=== PATIENT | female | born 1940 | race Caucasian/White ===

== ENCOUNTER 2021-10-05 16:50 | Emergency (ER) | payer MEDICARE ==
[2021-10-05 19:24] LABS: #Basophils 0.1 10x3/uL (0.0-0.2); #Eosinphils 0.2 10x3/uL (0.0-0.5); #Monocytes 0.7 10x3/uL (0.0-1.1); #Neutrophils 3.5 10x3/uL (1.5-8.4); %Basophils 0.7 % (0.0-2.0); %Eosinophils 2.5 % (0.0-6.0); %Monocytes 9.2 % (0.0-10.0); %Neutrophils 49.2 % (40.0-75.0); Hemoglobin 11.8 g/dL (12.0-15.5); Mean Corpuscular HGB CONC 33.5 g/dL (32.0-36.0); Mean Corpuscular Hemoglobin 31.6 pg (27.0-33.0); Mean Corpuscular Volume 94.1 fl (81.6-98.3); Mean Platelet Volume 10.9 fl (7.4-10.4); Platelet Count 264 10x3/uL (150-450); RBC Distribution Width 12.4 % (11.5-14.5); Red Blood Cell (RBC) Count 3.74 10x6/uL (3.90-5.03); White Blood Cell (WBC) Count 7.1 10x3/uL (3.5-10.5)
[2021-10-05 20:06] LABS: ALT (SGPT) 11 U/L (8-55); AST (SGOT) 17 U/L (5-34); Albumin 3.9 g/dL (3.4-4.8); Alkaline Phosphatase 106 U/L (40-110); Anion Gap 12 mmol/L (10-20); BUN (Urea Nitrogen) 26 mg/dL (9.8-20.1); Bilirubin, Total 0.7 mg/dL (0.2-1.2); CK (CPK) 66 U/L (29-168); Calc. Creatinine Clearance 0 mL/min (70-130); Calcium 9.4 mg/dL (7.8-10.44); Carbon Dioxide 28 mmol/L (23-31); Chloride 102 mmol/L (98-107); Estimated GFR 63; Globulin 2.3 g/dL (2.4-3.5); Glucose 151 mg/dL (83-110); Potassium 4.4 mmol/L (3.5-5.1); Protein, Total 6.2 g/dL (5.8-8.1); Sodium 138 mmol/L (136-145)
== END 2021-10-05 20:45 | disposition home or self-care (01) ==
LOC: CSHERS 16:50
DX: R00.1 Bradycardia, unspecified (principal); R51.9 Headache, unspecified; R11.0 Nausea; I48.91 Unspecified atrial fibrillation; I10 Essential (primary) hypertension; M81.0 Age-related osteoporosis without current pathological fracture
CPT/HCPCS: 80053; 82550; 84484; 85025; 93005

== ENCOUNTER 2021-10-06 11:16 | Emergency (ER) | payer MEDICARE | END 2021-10-06 11:50 | disposition home or self-care (01) | LOC: CSHERS 11:16 | DX: R00.1 Bradycardia, unspecified (principal); I48.91 Unspecified atrial fibrillation; I10 Essential (primary) hypertension | CPT/HCPCS: 93005 ==

== ENCOUNTER 2022-03-05 18:43 | Inpatient (IN) | payer MEDICARE ==
[2022-03-05 20:06] LABS: #Monocytes 0.8 10x3/uL (0.0-1.1); #Neutrophils 7.3 10x3/uL (1.5-8.4); %Basophils 0.2 % (0.0-2.0); %Eosinophils 0.1 % (0.0-6.0); %Lymphocytes 13.5 % (18.0-47.0); %Monocytes 8.7 % (0.0-10.0); %Neutrophils 77.2 % (40.0-75.0); Hemoglobin 11.8 g/dL (12.0-15.5); Mean Corpuscular HGB CONC 34.6 g/dL (32.0-36.0); Mean Corpuscular Volume 92.4 fl (81.6-98.3); Mean Platelet Volume 10.5 fl (7.4-10.4); Platelet Count 175 10x3/uL (150-450); RBC Distribution Width 12.4 % (11.5-14.5); Red Blood Cell (RBC) Count 3.69 10x6/uL (3.90-5.03); White Blood Cell (WBC) Count 9.4 10x3/uL (3.5-10.5)
[2022-03-05 20:22] LABS: ALT (SGPT) 19 U/L (8-55); AST (SGOT) 28 U/L (5-34); Albumin 3.7 g/dL (3.4-4.8); Alkaline Phosphatase 68 U/L (40-110); Anion Gap 13 mmol/L (10-20); BUN (Urea Nitrogen) 11 mg/dL (9.8-20.1); Bilirubin, Total 0.6 mg/dL (0.2-1.2); Calc. Creatinine Clearance 0 mL/min (70-130); Calcium 8.2 mg/dL (7.8-10.44); Carbon Dioxide 23 mmol/L (23-31); Chloride 99 mmol/L (98-107); Estimated GFR 57; Globulin 2.1 g/dL (2.4-3.5); Glucose 134 mg/dL (83-110); Potassium 4.5 mmol/L (3.5-5.1); Protein, Total 5.8 g/dL (5.8-8.1); Sodium 130 mmol/L (136-145)
[2022-03-06] MEDS ORDERED: Aspirin 81 mg Enteric Coated Tablet PO SCH (02:30)
[2022-03-06 02:36] LABS: Troponin I 0.038 ng/mL (< 0.028)
[2022-03-06] MEDS ORDERED: Aspirin Chewable 81 MG TAB ONE ×2 (02:46→08:17)
[2022-03-06] MEDS ORDERED: NS 0.9% w/ 20 MEQ KCL 1,000 ML ONE ×2 (02:47)
[2022-03-06] MEDS: NS 0.9% w/ 20 MEQ KCL 1,000 ML/1,000 ML BAG IV SCH ×2 (02:55→14:42)
[2022-03-06 03:55] LABS: Anion Gap 14 mmol/L (10-20); BUN (Urea Nitrogen) 8 mg/dL (9.8-20.1); Calc. Creatinine Clearance 0 mL/min (70-130); Calcium 8.1 mg/dL (7.8-10.44); Carbon Dioxide 21 mmol/L (23-31); Chloride 105 mmol/L (98-107); Estimated GFR 72; Glucose 104 mg/dL (83-110); Magnesium 1.8 mg/dL (1.6-2.6); Potassium 4.2 mmol/L (3.5-5.1); Sodium 136 mmol/L (136-145)
[2022-03-06 03:58] LABS: Hemoglobin 11.4 g/dL (12.0-15.5); Mean Corpuscular HGB CONC 34.4 g/dL (32.0-36.0); Mean Corpuscular Hemoglobin 31.8 pg (27.0-33.0); Mean Corpuscular Volume 92.2 fl (81.6-98.3); Mean Platelet Volume 10.3 fl (7.4-10.4); Platelet Count 161 10x3/uL (150-450); RBC Distribution Width 12.4 % (11.5-14.5); Red Blood Cell (RBC) Count 3.59 10x6/uL (3.90-5.03); White Blood Cell (WBC) Count 8.3 10x3/uL (3.5-10.5)
[2022-03-06 04:01] LABS: MDiff Complete? YES
[2022-03-06 04:06] LABS: Lymphocytes 22 % (21-51); Monocytes 5 % (0-10); Neutrophil 73 % (42-75)
[2022-03-06 04:09] LABS: Hypochromia SLIGHT = 6-15 cells (100X) (0-5/hpf); Microcytosis SLIGHT = 6-15 cells (100X) (0-5/hpf); Platelet Morphology Comment Appears Adequate
[2022-03-06] MEDS ORDERED: PAXLOVID REQUEST IVPB PRN (06:12)
[2022-03-06 07:35] VITALS: BMI 23.1
[2022-03-06] MEDS ORDERED: FLU VACC QS2022-23(65YR UP)/PF 240 MCG/0.7 ML SYRINGE IM ONE (08:15)
[2022-03-06] MEDS ORDERED: Apixaban 5 MG TAB ONE (08:17)
[2022-03-06] MEDS ORDERED: Zinc Sulfate 220 MG CAP ONE (08:19)
[2022-03-06] MEDS ORDERED: Cholecalciferol 1,000 UNITS (25 MCG) TAB ONE (08:19)
[2022-03-06] MEDS ORDERED: Ascorbic Acid 500 mg Chewable Tablet ONE (08:19)
[2022-03-06] MEDS: Ascorbic Acid 500 mg Chewable Tablet PO SCH (08:24)
[2022-03-06] MEDS: Polyethylene Glycol 3350 17 GM Packet PO SCH (08:24)
[2022-03-06] MEDS: Aspirin 81 mg Enteric Coated Tablet PO SCH (08:24)
[2022-03-06] MEDS: Valsartan 80 MG TAB PO SCH (08:24)
[2022-03-06] MEDS: Zinc Sulfate 220 MG CAP PO SCH (08:24)
[2022-03-06] MEDS: Docusate 100 MG CAP PO SCH ×2 (08:24→20:13)
[2022-03-06] MEDS: Apixaban 2.5 MG TAB PO SCH ×2 (08:24→20:13)
[2022-03-06] MEDS: Cholecalciferol 1,000 UNITS (25 MCG) TAB PO SCH (08:24)
[2022-03-06] MEDS ORDERED: Enoxaparin Sodium 40 MG/0.4 ML SYRINGE SC SCH (09:00)
[2022-03-07] MEDS: NS 0.9% w/ 20 MEQ KCL 1,000 ML/1,000 ML BAG IV SCH ×2 (03:27→17:54)
[2022-03-07] MEDS: Apixaban 2.5 MG TAB PO SCH ×2 (09:52→20:53)
[2022-03-07] MEDS: Ascorbic Acid 500 mg Chewable Tablet PO SCH (09:52)
[2022-03-07] MEDS: Zinc Sulfate 220 MG CAP PO SCH (09:52)
[2022-03-07] MEDS: Docusate 100 MG CAP PO SCH ×2 (09:52→20:53)
[2022-03-07] MEDS: Polyethylene Glycol 3350 17 GM Packet PO SCH (09:52)
[2022-03-07] MEDS: Cholecalciferol 1,000 UNITS (25 MCG) TAB PO SCH (09:52)
[2022-03-07] MEDS: Valsartan 80 MG TAB PO SCH (09:53)
[2022-03-07] MEDS: Aspirin 81 mg Enteric Coated Tablet PO SCH (09:53)
[2022-03-07] MEDS: Acetaminophen 325 MG TAB PO PRN (13:18)
[2022-03-08 05:08] LABS: #Monocytes 0.6 10x3/uL (0.0-1.1); #Neutrophils 4.5 10x3/uL (1.5-8.4); %Basophils 0.3 % (0.0-2.0); %Eosinophils 0.3 % (0.0-6.0); %Lymphocytes 13.1 % (18.0-47.0); %Monocytes 10.3 % (0.0-10.0); %Neutrophils 75.7 % (40.0-75.0); Hemoglobin 11.8 g/dL (12.0-15.5); Mean Corpuscular HGB CONC 34.4 g/dL (32.0-36.0); Mean Corpuscular Hemoglobin 31.6 pg (27.0-33.0); Mean Platelet Volume 10.4 fl (7.4-10.4); Platelet Count 172 10x3/uL (150-450); RBC Distribution Width 12.2 % (11.5-14.5); Red Blood Cell (RBC) Count 3.73 10x6/uL (3.90-5.03)
[2022-03-08 05:17] LABS: Anion Gap 13 mmol/L (10-20); BUN (Urea Nitrogen) 7 mg/dL (9.8-20.1); Calc. Creatinine Clearance 52 mL/min (70-130); Calcium 8.3 mg/dL (7.8-10.44); Carbon Dioxide 22 mmol/L (23-31); Chloride 103 mmol/L (98-107); Estimated GFR 79; Glucose 103 mg/dL (83-110); Potassium 3.8 mmol/L (3.5-5.1); Sodium 134 mmol/L (136-145)
[2022-03-08] MEDS ORDERED: NS 0.9% w/ 20 MEQ KCL 1,000 ML ONE (05:57)
[2022-03-08] MEDS: NS 0.9% w/ 20 MEQ KCL 1,000 ML/1,000 ML BAG IV SCH ×2 (06:13→21:41)
[2022-03-08] MEDS: Docusate 100 MG CAP PO SCH (09:08)
[2022-03-08] MEDS: Polyethylene Glycol 3350 17 GM Packet PO SCH (09:08)
[2022-03-08] MEDS: Valsartan 80 MG TAB PO SCH (09:08)
[2022-03-08] MEDS: Cholecalciferol 1,000 UNITS (25 MCG) TAB PO SCH (09:08)
[2022-03-08] MEDS: Aspirin 81 mg Enteric Coated Tablet PO SCH (09:09)
[2022-03-08] MEDS: Apixaban 2.5 MG TAB PO SCH (09:09)
[2022-03-08] MEDS: Ascorbic Acid 500 mg Chewable Tablet PO SCH (09:09)
[2022-03-08] MEDS: Zinc Sulfate 220 MG CAP PO SCH (11:21)
[2022-03-08] MEDS: guaiFENesin/Codeine Phosphate 100 mg/10 mg 5 ml UD Cup PO PRN (11:21)
[2022-03-08] MEDS: Senokot S 8.6-50 MG TAB PO PRN (21:40)
[2022-03-09 04:50] LABS: #Neutrophils 5.6 10x3/uL (1.5-8.4); %Basophils 0.1 % (0.0-2.0); %Eosinophils 0.1 % (0.0-6.0); %Lymphocytes 15.1 % (18.0-47.0); %Monocytes 12.3 % (0.0-10.0); %Neutrophils 71.8 % (40.0-75.0); Hemoglobin 11.5 g/dL (12.0-15.5); Mean Corpuscular HGB CONC 34.2 g/dL (32.0-36.0); Mean Corpuscular Hemoglobin 31.3 pg (27.0-33.0); Mean Corpuscular Volume 91.6 fl (81.6-98.3); Mean Platelet Volume 10.2 fl (7.4-10.4); Platelet Count 204 10x3/uL (150-450); RBC Distribution Width 12.1 % (11.5-14.5); Red Blood Cell (RBC) Count 3.67 10x6/uL (3.90-5.03); White Blood Cell (WBC) Count 7.8 10x3/uL (3.5-10.5)
[2022-03-09] MEDS: Apixaban 2.5 MG TAB PO SCH ×2 (04:50→10:06)
[2022-03-09 04:53] LABS: Anion Gap 15 mmol/L (10-20); BUN (Urea Nitrogen) 7 mg/dL (9.8-20.1); Calc. Creatinine Clearance 52 mL/min (70-130); Calcium 8.3 mg/dL (7.8-10.44); Carbon Dioxide 21 mmol/L (23-31); Chloride 102 mmol/L (98-107); Estimated GFR 77; Glucose 104 mg/dL (83-110); Potassium 3.9 mmol/L (3.5-5.1); Sodium 134 mmol/L (136-145)
[2022-03-09] MEDS: Docusate 100 MG CAP PO SCH ×3 (06:53→22:50)
[2022-03-09] MEDS ORDERED: Ventolin HFA Inhaler 60 PUFF INHALER INH PRN (09:47)
[2022-03-09] MEDS ORDERED: Dexamethasone 4 MG TAB PO SCH (10:00)
[2022-03-09] MEDS: Benzonatate 100 MG CAP PO SCH ×2 (10:04→16:17)
[2022-03-09] MEDS: Polyethylene Glycol 3350 17 GM Packet PO SCH (10:05)
[2022-03-09] MEDS: Aspirin 81 mg Enteric Coated Tablet PO SCH (10:05)
[2022-03-09] MEDS: Ascorbic Acid 500 mg Chewable Tablet PO SCH (10:06)
[2022-03-09] MEDS: Cholecalciferol 1,000 UNITS (25 MCG) TAB PO SCH (10:06)
[2022-03-09] MEDS: Zinc Sulfate 220 MG CAP PO SCH (10:07)
[2022-03-09] MEDS: guaiFENesin/Codeine Phosphate 100 mg/10 mg 5 ml UD Cup PO PRN (10:07)
[2022-03-09] MEDS ORDERED: Fluticasone Propionate Nasal Spray 16 gm Bottle NASAL SCH (10:15)
[2022-03-09] MEDS: Valsartan 80 MG TAB PO SCH (10:19)
[2022-03-10] MEDS: Apixaban 2.5 MG TAB PO SCH ×3 (01:05→20:50)
[2022-03-10 05:02] LABS: Hemoglobin 11.3 g/dL (12.0-15.5); Mean Corpuscular HGB CONC 35.5 g/dL (32.0-36.0); Mean Corpuscular Hemoglobin 31.7 pg (27.0-33.0); Mean Corpuscular Volume 89.3 fl (81.6-98.3); Mean Platelet Volume 10.3 fl (7.4-10.4); Platelet Count 269 10x3/uL (150-450); RBC Distribution Width 11.9 % (11.5-14.5); Red Blood Cell (RBC) Count 3.56 10x6/uL (3.90-5.03); White Blood Cell (WBC) Count 9.1 10x3/uL (3.5-10.5)
[2022-03-10] MEDS: Benzonatate 100 MG CAP PO SCH ×5 (05:04→20:50)
[2022-03-10] MEDS: Acetaminophen 325 MG TAB PO PRN (05:06)
[2022-03-10 05:10] LABS: Anion Gap 13 mmol/L (10-20); BUN (Urea Nitrogen) 8 mg/dL (9.8-20.1); Calc. Creatinine Clearance 57 mL/min (70-130); Calcium 8.7 mg/dL (7.8-10.44); Carbon Dioxide 19 mmol/L (23-31); Chloride 106 mmol/L (98-107); Estimated GFR 87; Glucose 129 mg/dL (83-110); Potassium 4.2 mmol/L (3.5-5.1); Sodium 134 mmol/L (136-145)
[2022-03-10 05:39] LABS: MDiff Complete? YES
[2022-03-10 05:41] LABS: Band 8 % (5-11); Lymphocytes 10 % (21-51); Monocytes 10 % (0-10); Neutrophil 72 % (42-75)
[2022-03-10 05:42] LABS: Platelet Morphology Comment Appears Adequate
[2022-03-10 05:43] LABS: RBC Morphology Normal
[2022-03-10] MEDS: Aspirin 81 mg Enteric Coated Tablet PO SCH (08:24)
[2022-03-10] MEDS: Dexamethasone 4 MG TAB PO SCH (08:24)
[2022-03-10] MEDS: Valsartan 80 MG TAB PO SCH (08:25)
[2022-03-10] MEDS: Ascorbic Acid 500 mg Chewable Tablet PO SCH (08:26)
[2022-03-10] MEDS: Zinc Sulfate 220 MG CAP PO SCH (08:26)
[2022-03-10] MEDS: Cholecalciferol 1,000 UNITS (25 MCG) TAB PO SCH (08:26)
[2022-03-10] MEDS: Fluticasone Propionate Nasal Spray 16 gm Bottle NASAL SCH (08:27)
[2022-03-10] MEDS: Docusate 100 MG CAP PO SCH ×2 (08:28→20:50)
[2022-03-10] MEDS: guaiFENesin/Codeine Phosphate 100 mg/10 mg 5 ml UD Cup PO PRN ×2 (08:29→20:50)
[2022-03-10] MEDS: Polyethylene Glycol 3350 17 GM Packet PO SCH (08:30)
[2022-03-10] MEDS ORDERED: Lidocaine 5% Patch TD SCH (16:30)
[2022-03-11] MEDS ORDERED: Transdermal Patch Removal TOP SCH (04:30)
[2022-03-11 04:42] LABS: #Monocytes 1.5 10x3/uL (0.0-1.1); #Neutrophils 9.1 10x3/uL (1.5-8.4); %Basophils 0.1 % (0.0-2.0); %Lymphocytes 13.6 % (18.0-47.0); %Monocytes 11.9 % (0.0-10.0); %Neutrophils 73.6 % (40.0-75.0); Hemoglobin 11.4 g/dL (12.0-15.5); Mean Corpuscular HGB CONC 35.3 g/dL (32.0-36.0); Mean Corpuscular Hemoglobin 31.2 pg (27.0-33.0); Mean Corpuscular Volume 88.5 fl (81.6-98.3); Mean Platelet Volume 9.6 fl (7.4-10.4); Platelet Count 310 10x3/uL (150-450); Red Blood Cell (RBC) Count 3.65 10x6/uL (3.90-5.03); White Blood Cell (WBC) Count 12.3 10x3/uL (3.5-10.5)
[2022-03-11 04:55] LABS: Anion Gap 12 mmol/L (10-20); BUN (Urea Nitrogen) 11 mg/dL (9.8-20.1); Calc. Creatinine Clearance 55 mL/min (70-130); Calcium 8.6 mg/dL (7.8-10.44); Carbon Dioxide 22 mmol/L (23-31); Chloride 102 mmol/L (98-107); Estimated GFR 84; Glucose 99 mg/dL (83-110); Sodium 132 mmol/L (136-145)
[2022-03-11] MEDS: Benzonatate 100 MG CAP PO SCH ×4 (05:08→22:48)
[2022-03-11] MEDS: Zinc Sulfate 220 MG CAP PO SCH (08:21)
[2022-03-11] MEDS: Polyethylene Glycol 3350 17 GM Packet PO SCH (08:21)
[2022-03-11] MEDS: Dexamethasone 4 MG TAB PO SCH (08:21)
[2022-03-11] MEDS: guaiFENesin/Codeine Phosphate 100 mg/10 mg 5 ml UD Cup PO PRN ×2 (08:21→22:48)
[2022-03-11] MEDS: Apixaban 2.5 MG TAB PO SCH ×2 (08:21→22:48)
[2022-03-11] MEDS: Docusate 100 MG CAP PO SCH ×2 (08:21→22:48)
[2022-03-11] MEDS: Cholecalciferol 1,000 UNITS (25 MCG) TAB PO SCH (08:22)
[2022-03-11] MEDS: Ascorbic Acid 500 mg Chewable Tablet PO SCH (08:22)
[2022-03-11] MEDS: Fluticasone Propionate Nasal Spray 16 gm Bottle NASAL SCH (08:22)
[2022-03-11] MEDS: Aspirin 81 mg Enteric Coated Tablet PO SCH (08:22)
[2022-03-11] MEDS: Valsartan 80 MG TAB PO SCH (08:23)
[2022-03-11] MEDS: Lidocaine 5% Patch TD SCH (12:00)
[2022-03-12] MEDS: Transdermal Patch Removal TOP SCH ×2 (04:00→23:45)
[2022-03-12 05:19] LABS: #Monocytes 1.3 10x3/uL (0.0-1.1); #Neutrophils 7.4 10x3/uL (1.5-8.4); %Basophils 0.2 % (0.0-2.0); %Lymphocytes 16.3 % (18.0-47.0); %Neutrophils 70.3 % (40.0-75.0); Mean Corpuscular HGB CONC 35.4 g/dL (32.0-36.0); Mean Corpuscular Hemoglobin 31.6 pg (27.0-33.0); Mean Corpuscular Volume 89.4 fl (81.6-98.3); Mean Platelet Volume 9.8 fl (7.4-10.4); Platelet Count 344 10x3/uL (150-450); RBC Distribution Width 11.9 % (11.5-14.5); Red Blood Cell (RBC) Count 3.67 10x6/uL (3.90-5.03); White Blood Cell (WBC) Count 10.5 10x3/uL (3.5-10.5)
[2022-03-12 05:33] LABS: Anion Gap 12 mmol/L (10-20); BUN (Urea Nitrogen) 11 mg/dL (9.8-20.1); Calc. Creatinine Clearance 52 mL/min (70-130); Calcium 8.6 mg/dL (7.8-10.44); Carbon Dioxide 23 mmol/L (23-31); Chloride 102 mmol/L (98-107); Estimated GFR 79; Glucose 80 mg/dL (83-110); Potassium 3.8 mmol/L (3.5-5.1); Sodium 133 mmol/L (136-145)
[2022-03-12 05:55] LABS: %Eosinophils 0.1 % (0.0-6.0); Hemoglobin 11.6 g/dL (12.0-15.5)
[2022-03-12] MEDS: Benzonatate 100 MG CAP PO SCH ×4 (07:35→22:14)
[2022-03-12] MEDS: Docusate 100 MG CAP PO SCH ×2 (09:45→22:14)
[2022-03-12] MEDS: Fluticasone Propionate Nasal Spray 16 gm Bottle NASAL SCH (09:45)
[2022-03-12] MEDS: Ascorbic Acid 500 mg Chewable Tablet PO SCH (09:45)
[2022-03-12] MEDS: Apixaban 2.5 MG TAB PO SCH (09:45)
[2022-03-12] MEDS: Valsartan 80 MG TAB PO SCH (09:45)
[2022-03-12] MEDS: Cholecalciferol 1,000 UNITS (25 MCG) TAB PO SCH (09:45)
[2022-03-12] MEDS: Polyethylene Glycol 3350 17 GM Packet PO SCH (09:45)
[2022-03-12] MEDS: Aspirin 81 mg Enteric Coated Tablet PO SCH (09:45)
[2022-03-12] MEDS: guaiFENesin/Codeine Phosphate 100 mg/10 mg 5 ml UD Cup PO PRN (09:45)
[2022-03-12] MEDS: Dexamethasone 4 MG TAB PO SCH (09:45)
[2022-03-12] MEDS: Zinc Sulfate 220 MG CAP PO SCH (09:45)
[2022-03-12] MEDS: Lidocaine 5% Patch TD SCH (11:16)
[2022-03-12] MEDS ORDERED: Ondansetron PF 4 MG/2 ML Vial IVP PRN (11:26)
[2022-03-12] MEDS: Ventolin HFA Inhaler 60 PUFF INHALER INH SCH ×3 (14:51→19:03)
[2022-03-13] MEDS: Ventolin HFA Inhaler 60 PUFF INHALER INH SCH ×4 (02:12→19:31)
[2022-03-13 05:09] LABS: #Monocytes 1.1 10x3/uL (0.0-1.1); #Neutrophils 7.8 10x3/uL (1.5-8.4); %Basophils 0.3 % (0.0-2.0); %Eosinophils 0.1 % (0.0-6.0); %Lymphocytes 14.7 % (18.0-47.0); %Monocytes 10.3 % (0.0-10.0); Hemoglobin 10.9 g/dL (12.0-15.5); Mean Corpuscular Hemoglobin 31.7 pg (27.0-33.0); Mean Corpuscular Volume 90.4 fl (81.6-98.3); Mean Platelet Volume 9.6 fl (7.4-10.4); Platelet Count 357 10x3/uL (150-450); Red Blood Cell (RBC) Count 3.44 10x6/uL (3.90-5.03); White Blood Cell (WBC) Count 10.7 10x3/uL (3.5-10.5)
[2022-03-13] MEDS: Benzonatate 100 MG CAP PO SCH ×4 (05:22→23:35)
[2022-03-13] MEDS: Fluticasone Propionate Nasal Spray 16 gm Bottle NASAL SCH (09:00)
[2022-03-13] MEDS: Valsartan 80 MG TAB PO SCH (12:36)
[2022-03-13] MEDS: Docusate 100 MG CAP PO SCH ×2 (12:36→23:35)
[2022-03-13] MEDS: Zinc Sulfate 220 MG CAP PO SCH (12:36)
[2022-03-13] MEDS: Apixaban 2.5 MG TAB PO SCH (12:37)
[2022-03-13] MEDS: Cholecalciferol 1,000 UNITS (25 MCG) TAB PO SCH (12:37)
[2022-03-13] MEDS: Ascorbic Acid 500 mg Chewable Tablet PO SCH (12:37)
[2022-03-13] MEDS: Dexamethasone 4 MG TAB PO SCH (12:37)
[2022-03-13] MEDS: Polyethylene Glycol 3350 17 GM Packet PO SCH (12:38)
[2022-03-13] MEDS: Acetaminophen 325 MG TAB PO PRN (12:52)
[2022-03-13] MEDS: Lidocaine 5% Patch TD SCH (12:53)
[2022-03-13] MEDS: Aspirin 81 mg Enteric Coated Tablet PO SCH (12:53)
[2022-03-13 15:42] LABS: Anion Gap 13 mmol/L (10-20); BUN (Urea Nitrogen) 14 mg/dL (9.8-20.1); Calc. Creatinine Clearance 50 mL/min (70-130); Calcium 7.9 mg/dL (7.8-10.44); Carbon Dioxide 21 mmol/L (23-31); Chloride 99 mmol/L (98-107); Estimated GFR 74; Glucose 132 mg/dL (83-110); Potassium 4.2 mmol/L (3.5-5.1); Sodium 129 mmol/L (136-145)
[2022-03-13] MEDS: Transdermal Patch Removal TOP SCH (23:30)
[2022-03-14 05:21] LABS: Anion Gap 11 mmol/L (10-20); BUN (Urea Nitrogen) 12 mg/dL (9.8-20.1); Calc. Creatinine Clearance 55 mL/min (70-130); Calcium 8.3 mg/dL (7.8-10.44); Carbon Dioxide 24 mmol/L (23-31); Chloride 101 mmol/L (98-107); Estimated GFR 84; Glucose 101 mg/dL (83-110); Potassium 4.1 mmol/L (3.5-5.1); Sodium 132 mmol/L (136-145)
[2022-03-14 05:27] LABS: #Monocytes 0.7 10x3/uL (0.0-1.1); #Neutrophils 7.9 10x3/uL (1.5-8.4); %Basophils 0.2 % (0.0-2.0); %Eosinophils 0.1 % (0.0-6.0); %Lymphocytes 13.3 % (18.0-47.0); %Neutrophils 77.9 % (40.0-75.0); Hemoglobin 10.8 g/dL (12.0-15.5); Mean Corpuscular HGB CONC 34.6 g/dL (32.0-36.0); Mean Corpuscular Hemoglobin 31.1 pg (27.0-33.0); Mean Corpuscular Volume 89.9 fl (81.6-98.3); Mean Platelet Volume 9.7 fl (7.4-10.4); Platelet Count 430 10x3/uL (150-450); RBC Distribution Width 11.9 % (11.5-14.5); Red Blood Cell (RBC) Count 3.47 10x6/uL (3.90-5.03); White Blood Cell (WBC) Count 10.2 10x3/uL (3.5-10.5)
[2022-03-14] MEDS: Benzonatate 100 MG CAP PO SCH ×2 (06:37→09:03)
[2022-03-14] MEDS: Ventolin HFA Inhaler 60 PUFF INHALER INH SCH ×2 (07:00→13:30)
[2022-03-14] MEDS: guaiFENesin/Codeine Phosphate 100 mg/10 mg 5 ml UD Cup PO PRN (09:02)
[2022-03-14] MEDS: Ascorbic Acid 500 mg Chewable Tablet PO SCH (09:02)
[2022-03-14] MEDS: Valsartan 80 MG TAB PO SCH (09:02)
[2022-03-14] MEDS: Apixaban 2.5 MG TAB PO SCH (09:02)
[2022-03-14] MEDS: Docusate 100 MG CAP PO SCH (09:02)
[2022-03-14] MEDS: Aspirin 81 mg Enteric Coated Tablet PO SCH (09:02)
[2022-03-14] MEDS: Dexamethasone 4 MG TAB PO SCH (09:02)
[2022-03-14] MEDS: Fluticasone Propionate Nasal Spray 16 gm Bottle NASAL SCH (09:02)
[2022-03-14] MEDS: Senokot S 8.6-50 MG TAB PO PRN (09:03)
[2022-03-14] MEDS: Zinc Sulfate 220 MG CAP PO SCH (09:03)
[2022-03-14] MEDS: Cholecalciferol 1,000 UNITS (25 MCG) TAB PO SCH (09:03)
[2022-03-14] MEDS: Lidocaine 5% Patch TD SCH (09:03)
[2022-03-14] MEDS: Polyethylene Glycol 3350 17 GM Packet PO SCH (09:03)
[2022-03-14 11:36] VITALS: BP 126/70; TEMP 97.6
[2022-03-14 13:28] LABS: SARS-CoV-2 NAA Rapid Test DETECTED (NotDetected)
== END 2022-03-14 14:32 | DRG 177 ==
LOC: CSHERS 18:43 → INTOOBSV 22:14 → CSHERHOLD 22:14 → CSHTELE 03-06 11:40 → OBSVTOIN 03-08 10:09
PROVIDERS: ADMIT Family Medicine; ATTEND Hospitalist
PROC: 8E0ZXY6 Isolation (ICD-10-PCS; 2022-03-08)
PROC: 3E0DX3Z Introduction of Anti-inflammatory into Mouth and Pharynx, External Approach (ICD-10-PCS; principal; 2022-03-09)
DX: U07.1 COVID-19 (principal); I21.A1 Myocardial infarction type 2; J96.01 Acute respiratory failure with hypoxia; S22.32XA Fracture of one rib, left side, initial encounter for closed fracture; I48.0 Paroxysmal atrial fibrillation; I10 Essential (primary) hypertension; R53.1 Weakness; R53.81 Other malaise; J20.8 Acute bronchitis due to other specified organisms; Z79.899 Other long term (current) drug therapy; Z90.710 Acquired absence of both cervix and uterus; Z88.0 Allergy status to penicillin; Z98.890 Other specified postprocedural states; Z79.01 Long term (current) use of anticoagulants; Z80.0 Family history of malignant neoplasm of digestive organs; Z82.3 Family history of stroke
CPT/HCPCS: 36415; 71045; 71250; 80048; 80053; 82728; 83735; 84145; 84484; 85025; 85379; 86140; 93005; 93010; 94664; 94760; 96360; G0378; J2405; J3480; J8540; U0002

== ENCOUNTER 2025-03-11 16:40 | Emergency (ER) | payer MEDICARE ==
[~2025-03-11 16:40] MED LIST: Iopamidol 300 61% 100 ML VIAL FS ONE
[2025-03-11] MEDS ORDERED: Acetaminophen 500 MG TAB ONE (17:41)
[2025-03-11 18:10] LABS: #Basophils 0.05 10x3/uL (0.0-0.2); #Eosinophils 0.12 10x3/uL (0.0-0.5); #Monocytes 0.84 10x3/uL (0.0-1.1); #Neutrophils 6.05 10x3/uL (1.5-8.4); %Basophils 0.6 % (0.0-2.0); %Eosinophils 1.4 % (0.0-6.0); %Lymphocytes 17.5 % (18.0-47.0); %Monocytes 9.8 % (0.0-10.0); %Neutrophils 70.4 % (40.0-75.0); Hematocrit 35.7 % (34.9-44.5); Hemoglobin 11.9 g/dL (12.0-15.5); Mean Corpuscular Hemoglobin 32.1 pg (27.0-33.0); Mean Corpuscular Volume 96.2 fL (81.6-98.3); Platelet Count 245 10x3/uL (150-450); Red Blood Cell (RBC) Count 3.71 10x6/uL (3.90-5.03); White Blood Cell (WBC) Count 8.59 10x3/uL (3.5-10.5)
[2025-03-11 18:21] LABS: ALT (SGPT) 12 U/L (Less than 34); AST (SGOT) 24 U/L (11-34); Albumin 3.9 g/dL (3.1-4.5); Alkaline Phosphatase 149 U/L (40-110); Anion Gap 14 mmol/L (10-20); BUN (Urea Nitrogen) 15 mg/dL (9.8-20.1); Bilirubin, Total 0.5 mg/dL (0.3-1.2); Calc. Creatinine Clearance 0 mL/min (70-130); Calcium 9.6 mg/dL (7.8-10.44); Carbon Dioxide 23 mmol/L (23-31); Chloride 103 mmol/L (98-107); Globulin 3.2 g/dL (2.4-3.5); Glucose 102 mg/dL (83-110); Lipase 47 U/L (8-78); Potassium 4.5 mmol/L (3.5-5.1); Sodium 135 mmol/L (136-145)
[2025-03-11 18:23] LABS: INR-International Normal Ratio 0.9; PTT 25.8 sec (22.0-33.0); Prothrombin Time 9.8 sec (9.5-12.1)
[2025-03-11 18:53] LABS: Glucose, Urine (Dipstick) Normal (Negative); Leukocyte 25 (Negative); Protein, Urine (Dipstick) Negative (Neg-Trace); Specific Gravity, Urine 1.005 (1.005-1.030)
[2025-03-11 19:08] LABS: Bacteria/HPF 1+ HPF (None Seen); CAUTI Indications for Culture Pelvic or flank pain
[2025-03-11 19:12] LABS: Urine Culture Reflex No No
== END 2025-03-11 22:13 ==
LOC: CSHERS 16:40
DX: R26.2 Difficulty in walking, not elsewhere classified (principal); I10 Essential (primary) hypertension; Z79.01 Long term (current) use of anticoagulants
CPT/HCPCS: 71260; 72170; 73552; 73564; 74177; 80053; 81001; 83605; 83690; 85025; 85610; 85730; 87086; 93005; 99285; Q9967